=== PATIENT | female | born 1985 | race Two or more races ===

== ENCOUNTER → 2024-09-07 | Outpatient (CLI) | payer OTHER, SELFPAY ==
--- NOTE | 2024-09-07 | XR_ITS ---
Examination: Bilateral knees, standing AP single view Technique: Standing AP bilateral knees, standing single view Exam date and time: September 07, 2024 1325 hrs. Indications: Bilateral knee pain beginning 3 weeks ago. Findings: Mild narrowing medial lateral joint spaces No fracture or dislocation Faint meniscus calcification Impression: Mild narrowing medial lateral joint spaces
[2024-09-07 12:34] LABS: Glucose Estimated Average 97 mg/dL (80-131)
[2024-09-07 15:18] LABS: Urea Breath Test Negative (Negative)
== END | disposition home or self-care (01) ==
LOC: CDIM 11:14
PROVIDERS: PCP Family Medicine; Referring Provider Physician Assistant; Visit Provider Physician Assistant
DX: M25.862 Other specified joint disorders, left knee (principal); M25.861 Other specified joint disorders, right knee
CPT/HCPCS: 36415; 73565; 83013; 83014; 83036